=== PATIENT | male | born 1955 | race Caucasian/White ===

== ENCOUNTER → 2020-04-19 | Outpatient (CLI) | payer OTHER ==
[2020-04-19 14:07] VITALS: BP 116/77; PULSE 78; TEMP 98; BMI 38.5
--- NOTE | 2020-04-19 16:27 | P.BASOAP ---
Subjective Progress Note Date: 04/19/20 Principal diagnosis: Morbid obesity 64-year-old male known to our service. Patient will LAP-BAND placement in early 2002 we believe. Thinks he had 3 mL of fluid in the band. Has done well with his weight loss recently. Starting earlier this year went on a very low calorie diet and has had good success. Patient complains of daily heartburn episodes usually in the evening. He has episodes of dysphagia every few weeks. Patient was recently seen by plastic surgeon to discuss panniculectomy and brachioplasty. Objective - Vital Signs Vital signs: Vital Signs Temp 98 F 04/19/20 14:05 Pulse 78 04/19/20 14:05 Resp BP 116/77 04/19/20 14:05 Pulse Ox Intake & Output 04/18/20 04/19/20 04/19/20 18:59 06:59 18:59 Weight 128.82 kg - Exam Abdomen: Soft, nontender, nondistended Assessment/Plan (1) Morbid obesity Narrative/Plan: Options reviewed with the patient. Patient states the band is not really helping him at this time and given the intermittent episodes of dysphagia with reflux advise emptying for now. Patient will follow up with his plastic surgeon to schedule panniculectomy and possibly other surgeries as well. He will monitor his appetite level while band was emptied. He will contact me if further feels needed. Otherwise follow-up after plastic surgery. The patient's lap band port was palpated. The site was aseptically prepped. The Manuel needle was advanced into the port. A total of 2 ml of fluid was evacuated. Band is now emptying. Pressure was held and a sterile dressing was applied. Plan: Date: 04/19/20 Initial Weight: Initial BMI: Current Weight: 128.82 kg Current BMI: 38.5 Type of Surgery: Total Volume in Band: 0 Previous Volume: Volume Removed: 2 Volume Added: Band Size:
== END | disposition home or self-care (01) ==
LOC: BARWHC3 13:23
PROVIDERS: ATTEND Surgery
DX: Z46.51 Encounter for fitting and adjustment of gastric lap band (principal); E66.01 Morbid (severe) obesity due to excess calories; Z98.84 Bariatric surgery status; Z98.890 Other specified postprocedural states; Z68.38 Body mass index [BMI] 38.0-38.9, adult
CPT/HCPCS: 99212

== ENCOUNTER → 2020-09-27 | Outpatient (CLI) | payer OTHER ==
[2020-09-27 14:44] VITALS: BP 158/55; PULSE 76; TEMP 98; BMI 40.6
--- NOTE | 2020-09-27 16:26 | P.BASOAP ---
Subjective Progress Note Date: 09/27/20 Principal diagnosis: Morbid obesity Patient was last seen in April. His band was emptied at that time. Patient has had weight gain since then and is interested in having fluid back. No nausea or vomiting. No pain. Objective - Vital Signs Vital signs: Vital Signs Temp 98 F 09/27/20 14:40 Pulse 76 09/27/20 14:40 Resp BP 158/55 09/27/20 14:40 Pulse Ox Intake & Output 09/26/20 09/27/20 09/27/20 18:59 06:59 18:59 Weight 136.078 kg - Exam Abdomen: Soft, nontender, nondistended Assessment/Plan (1) Morbid obesity Narrative/Plan: Patient here today to have his band refilled. We'll add 1.5 mL. Patient will try to see if this is enough fluid for adequate restriction and subsequent weight loss. The patient's lap band port was palpated. The site was aseptically prepped. The Manuel needle was advanced into the port. A total of 1.5 ml of fluid was added. Pressure was held and a sterile dressing was applied. Plan: Date: 09/27/20 Initial Weight: Initial BMI: Current Weight: 136.078 kg Current BMI: 40.6 Type of Surgery: Total Volume in Band: 1.5 Previous Volume: Volume Removed: Volume Added: 1.5 Band Size:
== END ==
LOC: BARWHC3 13:20
PROVIDERS: ATTEND Surgery
DX: Z46.51 Encounter for fitting and adjustment of gastric lap band (principal); E66.01 Morbid (severe) obesity due to excess calories; Z68.41 Body mass index [BMI] 40.0-44.9, adult; Z98.84 Bariatric surgery status
CPT/HCPCS: 99212